=== PATIENT | female | born 1990 | race Caucasian/White ===

== ENCOUNTER 2017-02-12 14:04 | Emergency (ER) | payer OTHER ==
[~2017-02-12] VITALS: Ht 162.6 cm; Wt 53.5 kg
[~2017-02-12 14:04] MED LIST: AZIT250T94 PO; CETI10CA PO; CYCL-319 PO; D-ME473S18 PO; FLUC150T17 PO; FLUT16SP17 NASAL; HYDR-3498 PO; IBUP-1542 PO; METR500T PO; NAPR-688 PO; ORPH100T PO
[2017-02-12 14:07] VITALS: Ht 162.6 cm; Wt 53.5 kg
[2017-02-12 16:41] LABS: URINE BLOOD (Dip) POC Negative (NEGATIVE)
[2017-02-12] MEDS ORDERED: PHEN-538 PO (17:29)
[2017-02-12] MEDS ORDERED: FLUC150T17 PO (17:30)
[2017-02-12] MEDS ORDERED: METR70GE15 VAG (17:30)
--- NOTE | 2017-02-12 17:43 | ERD ---
ER Documentation Chief Complaint Date/Time DATE: 02/12/17 TIME: 17:37 Chief Complaint DYSURIA FOR 3 DAYS WITH SOME VAGINAL DISCOMFORT DURING SEX, HPI This a 26-year-old female who presents the emergency department today complaining burning and pain with urination for the past 5 days. Patient states that she had a couple of Cipro at home and took some of that and it is better however she still has some pain. States that she also has vaginal discharge. States that she has a history of yeast infections and BV in the past. Denies any fevers or chills or back pain. ROS All systems reviewed and are negative except as per history of present illness. Medications Home Meds Active Scripts Metronidazole* (Metrogel* Vaginal) 0.75% -70 Gram Gel.w.appl, 1 APPFUL VAG BID for 7 Days, #1 TUB Prov:KECIA ROSALES PA-C 02/12/17 Fluconazole* (Diflucan*) 150 Mg Tablet, 150 MG PO ONCE, #2 TAB Prov:KECIA ROSALES PA-C 02/12/17 Phenazopyridine Hcl* (Pyridium*) 200 Mg Tab, 200 MG PO TID for 2 Days, TAB Prov:KECIA ROSALES PA-C 02/12/17 Azithromycin* (Zithromax*) 250 Mg Tablet, 250 MG PO .ZPACK DIRECTED, #6 TAB TAKE 500 MG (2 TABS) THE FIRST DAY THEN 250 MG (1 TAB) DAYS 2-5 Prov:MARY ANN CORDOVA MD 10/20/16 Dextromethorphan Hb-Promethazine Hcl (Promethazine DM Syrup) 473 Ml Syrup, 5 ML PO Q6H Y for COUGH, #4 OZ Prov:MARY ANN CORDOVA MD 10/20/16 Fluconazole* (Diflucan*) 150 Mg Tablet, 150 MG PO ONCE, #2 TAB Prov:KECIA ROSALES PA-C 09/06/16 Metronidazole* (Flagyl*) 500 Mg Tablet, 500 MG PO BID for 7 Days, TAB Prov:KECIA ROSALES PA-C 09/06/16 Fluticasone Propionate* (Fluticasone Propionate* Nasal) 50 Mcg/Chancellor - 16 Gm Chancellor.susp, 1 SPRAY NASAL BID, #1 BOTTLE TO EACH NOSTRIL Prov:KECIA ROSALES PA-C 08/17/16 Cetirizine Hcl* (Zyrtec*) 10 Mg Capsule, 10 MG PO DAILY, #14 TAB.CHEW Prov:KECIA ROSALES PA-C 08/17/16 Ibuprofen* (Motrin*) 600 Mg Tab, 600 MG PO Q6, #30 TAB Prov:KECIA ROSALES PA-C 08/17/16 Hydrocodone Bit-Acetaminophen* ([place]*) 5-325 Mg Tab, 1 TAB PO Q6 Y for PAIN, # 20 TAB Prov:DHEERAJ AKHTAR NP 11/01/15 Hydrocodone Bit-Acetaminophen* ([place]*) 5-325 Mg Tab, 1 TAB PO Q6 Y for PAIN, # 14 TAB Prov:MARY ANN CORDOVA MD 10/05/15 Hydrocodone Bit-Acetaminophen* ([place]*) 5-325 Mg Tab, 1 TAB PO Q4H Y for PAIN for 3 Days, TAB 0 Refills Prov:RIAN EMERSON PA-C 10/04/15 Cyclobenzaprine Hcl* (Cyclobenzaprine Hcl*) 10 Mg Tablet, 10 MG PO QAM for 10 Days, TAB 0 Refills Prov:RIAN EMERSON PA-C 10/04/15 Naproxen* (Naproxen*) 500 Mg Tablet, 500 MG PO BID Y for PAIN, #20 TAB Prov:REAGAN BRADFORD DO 07/08/15 Orphenadrine Citrate (Norflex) 100 Mg Tablet.sa, 100 MG PO BID, #14 TAB.SA Prov:REAGAN BRADFORD DO 07/08/15 Hydrocodone Bit-Acetaminophen* ([place]*) 5-325 Mg Tab, 1 TAB PO Q4H Y for PAIN, # 14 TAB Prov:GREENFERNREAGAN DO 07/08/15 Allergies Allergies: Uncoded Allergies: PINEAPPLE (Allergy, Severe, TONGUE ITCHY, TOUNGE AND LIPS SWELLING, 12/20/13 ) PMhx/Soc History of Surgery: Yes (TONSILLECTOMY(2001)) Anesthesia Reaction: No Hx Neurological Disorder: No Hx Respiratory Disorders: No Hx Cardiac Disorders: Yes (svt) Hx Psychiatric Problems: No Hx Miscellaneous Medical Probl: No (OVARIAN CYSTS) Hx Alcohol Use: No Hx Substance Use: No Hx Tobacco Use: No Physical Exam Vitals Vital Signs Date Time Temp Pulse Resp B/P Pulse Ox O2 Delivery O2 Flow Rate FiO2 02/12/17 14:07 98.2 88 19 115/77 98 Physical Exam Const: Talkative, no acute distress Head: Atraumatic Eyes: Normal Conjunctiva ENT: Normal External Ears, Nose and Mouth. Neck: Full range of motion..~ No meningismus. Resp: Clear to auscultation bilaterally Cardio: Regular rate and rhythm, no murmurs Abd: Soft, mild suprapubic tenderness non distended. Normal bowel sounds. No right lower quadrant pain. No left lower quadrant pain. Skin: No petechiae or rashes Back: No midline or flank tenderness. No CVA tenderness. Neur: Awake and alert Psych: Normal Mood and Affect Results 24 hrs Laboratory Tests Test 02/12/17 16:40 Bedside Urine Blood Negative Bedside Urine Glucose (UA) Negative Bedside Urine Ketones (LAB) Negative Bedside Urine Leukocyte Esterase (L Negative Bedside Urine Nitrite (LAB) Negative Bedside Urine Protein (LAB) Negative Bedside Urine pH (LAB) 6.0 Procedures/MDM This is a 26-year-old female who presents to the emergency department today complaining of burning and pain with urination. Patient is also reporting vaginal discharge. I did obtain a UA that was negative for infection. Patient symptoms at this time most consistent with dysuria. She is afebrile and otherwise well- appearing. Low suspicion for pyelonephritis or nephrolithiasis. Patient has a history of BV and yeast infections in the past. I will treat the patient prophylactically with Diflucan as well as MetroGel for possible Karol or bacterial vaginosis. Patient was not concerned about any sexually transmitted infections and states that she only has 1 partner. I did not send the urine for culture or chlamydia or gonorrhea. She has no right lower quadrant pain and a left lower quadrant pain. Low suspicion for acute surgical abdomen, ovarian torsion, tubo-ovarian abscess, ectopic . Patient was given a prescription for Pyridium, Diflucan and MetroGel At this time the patient is stable for discharge and outpatient management. Patient should follow up with their PCP in the next 1-2 days. They may return to the emergency department sooner for any persistent or worsening of symptoms. Patient understood and agreed with the plan. Departure Diagnosis: Primary Impression: Dysuria Condition: Fair Patient Instructions: Dysuria Referrals: HEENA BUTLER (PCP) Additional Instructions: Call your primary care doctor TOMORROW for an appointment during the next 1-2 days.See the doctor sooner or return here if your condition worsens before your appointment time. Take Pyridium for urinary symptom Take Diflucan for yeast Use MetroGel for BV KECIA ROSALES PA-C Feb 12, 2017 17:42
== END 2017-02-12 17:43 | disposition home or self-care (01) ==
LOC: FTE 14:04
DX: R30.0 Dysuria (principal)
CPT/HCPCS: 81003; Z7502; 99284

== ENCOUNTER 2018-02-09 20:51 | Emergency (ER) | END 2018-02-09 21:49 | disposition home or self-care (01) ==

== ENCOUNTER 2018-02-13 02:14 | Emergency (ER) | END 2018-02-13 04:54 | disposition home or self-care (01) ==

== ENCOUNTER 2018-05-27 20:15 | Emergency (ER) | END 2018-05-27 23:40 | disposition home or self-care (01) ==

== ENCOUNTER 2018-05-28 16:21 | Emergency (ER) | END 2018-05-28 18:10 | disposition home or self-care (01) ==

== ENCOUNTER 2018-06-01 23:36 | Emergency (ER) | END 2018-06-02 02:25 | disposition left against medical advice (07) ==